=== PATIENT | female | born 2000 | race Caucasian/White ===

== ENCOUNTER → 2020-09-28 | Outpatient (CLI) | payer MEDICAID, OTHER ==
[2020-09-28 09:29] VITALS: BP 126/82
--- NOTE | 2020-09-28 11:23 | NUR ---
Outpatient Infusion Pt ambulated with mother to unit. IV initiated, 1 L of NS at 500ml/hr infused and IV discontinued. Pt GCS 15 and VSS throughout infusion. Pt ambulated off unit with mother. All questions addressed. CC, RN
== END | disposition home or self-care (01) ==
LOC: OPINF 08:55
PROVIDERS: ATTEND Family Medicine
DX: I95.1 Orthostatic hypotension (principal); I49.8 Other specified cardiac arrhythmias
CPT/HCPCS: 96360; 96361; J7030; 36592